=== PATIENT | female | born 1935 | race Hispanic/Latino ===

== ENCOUNTER 2017-08-04 15:37 | Emergency (ER) | payer MEDICARE, BC ==
[2017-08-04 15:47] VITALS: BMI 27.0
[2017-08-04 15:54] VITALS: TEMP 98
[2017-08-04] MEDS ORDERED: Morphine 5 MG/ML SYRINGE SC STA (16:03)
--- NOTE | 2017-08-04 16:07 | ED PDOC ---
Arrival/HPI - General Chief Complaint: Abnormal Skin Integrity Time Seen by Provider: 08/04/17 15:38 Historian: Patient, Family (Sister) - History of Present Illness Time/Duration: Other (Several days) Symptom Onset: Gradual Symptom Course: Worsening Severity Level: Severe Activities at Onset: Rest Associated Symptoms (Text): 08/04/17 16:05 Patient complains of a several day history of severe intolerable right breast and right back pain. She developed a rash. No dyspnea. No cough congestion or URI. No fever or chills. Lumbar epidural on July 25. Past Medical History - Infectious Disease Hx of Infectious Diseases: None - Reproductive Menopause: Yes - Cardiac Hx Cardiac Disorders: Yes Hx Hypertension: Yes - Pulmonary Hx Respiratory Disorders: No - Neurological Hx Neurological Disorder: No - HEENT Hx HEENT Disorder: No - Renal Hx Renal Disorder: No - Endocrine/Metabolic Hx Endocrine Disorders: No - Hematological/Oncological Hx Blood Disorders: Yes Hx Cancer: Yes (Colon Ca in 1978 tx Chemo) - Integumentary Hx Psoriasis: Yes (Back, especially lower back) - Musculoskeletal/Rheumatological Hx Falls: No - Gastrointestinal Hx Gastroesophageal Reflux: Yes - Genitourinary/Gynecological Hx Genitourinary Disorders: (Bilateral Breasts Biopsy) - Psychiatric Hx Psychophysiologic Disorder: No Hx Substance Use: No - Surgical History Hx Appendectomy: Yes Hx Hysterectomy: Yes - Anesthesia Hx Anesthesia Reactions: No Hx Malignant Hyperthermia: No - Suicidal Assessment Feels Threatened In Home Enviroment: No Family/Social History - Physician Review Nursing Documentation Reviewed: Yes Family/Social History: Unknown Family HX Smoking Status: Never Smoked Hx Alcohol Use: No Hx Substance Use: No Allergies/Home Meds Allergies/Adverse Reactions: Allergies alendronate sodium Allergy (Verified 08/04/17 15:47) PAIN clarithromycin Allergy (Verified 08/04/17 15:48) PAIN risedronate sodium [From Actonel] Allergy (Verified 08/04/17 15:48) PAIN Home Medications: Home Meds Medication Instructions Recorded Confirmed Amlodipine Besylate [Norvasc] 5 mg PO DAILY 07/29/13 08/04/17 Calcium/Vitamin D [Calcarb 600 1 tab PO TID 07/29/13 08/04/17 with Vitamin D 600 mg-400 Iu] Omeprazole [PrilOSEC] 40 mg PO DAILY 07/29/13 08/04/17 Review of Systems - Physician Review All systems were reviewed & negative as marked: Yes Physical Exam Vital Signs Temp Pulse Resp BP Pulse Ox 08/04/17 17:29 99 H 16 132/87 95 08/04/17 15:53 98 F 113 H 18 130/62 94 L Temperature: Afebrile Blood Pressure: Normal Pulse: Regular Respiratory Rate: Normal Appearance: Positive for: Well-Appearing, Non-Toxic, Uncomfortable Pain Distress: Severe Mental Status: Positive for: Alert and Oriented X 3 - Systems Exam Respiratory/Chest: Present: Clear to Auscultation, Good Air Exchange. No: Respiratory Distress, Accessory Muscle Use Cardiovascular: Present: Regular Rate and Rhythm, Normal S1, S2. No: Murmurs Upper Extremity: Present: Normal Inspection. No: Cyanosis, Edema Lower Extremity: Present: Normal Inspection. No: Edema Neurological: Present: GCS=15, CN II-XII Intact, Speech Normal, Motor Func Grossly Intact Skin: Present: Warm, Dry, Rashes (Erythematous right middle back and right breast rash, no vesicles yet), Normal Color Medical Decision Making ED Course and Treatment: 08/04/17 16:55 Symptoms have mildly improved. - Medication Orders Current Medication Orders: Discontinued Medications Famciclovir (Famvir) 500 mg PO Q8 CHIN Last Admin: 08/04/17 17:16 Dose: 500 mg Morphine Sulfate (Morphine) 4 mg SC STAT STA Stop: 08/04/17 16:04 Last Admin: 08/04/17 16:42 Dose: 4 mg Subcutaneous Administrations Document 08/04/17 16:42 GA (Rec: 08/04/17 16:42 GA [id number]) Charges for Administration # of Subcutaneous Administrations 1 Ondansetron HCl (Zofran Tab) 4 mg PO STAT STA Stop: 08/04/17 16:04 Last Admin: 08/04/17 16:42 Dose: 4 mg Disposition/Present on Arrival - Present on Arrival Any Indicators Present on Arrival: No History of DVT/PE: No History of Uncontrolled Diabetes: No Urinary Catheter: No History of Decub. Ulcer: No History Surgical Site Infection Following: None - Disposition Have Diagnosis and Disposition been Completed?: Yes Diagnosis: Shingles Disposition: HOME/ ROUTINE Disposition Time: 16:56 Patient Plan: Discharge Condition: IMPROVED Discharge Instructions (ExitCare): Fly (ED) Additional Instructions: Follow-up with PMD. Follow up in ER as needed. Prescriptions: Famciclovir [Famvir] 500 mg PO Q8 #21 tab oxyCODONE/Acetaminophen [Percocet 5/325 mg Tab] 1 ea PO Q6 #15 tab Ondansetron [Zofran Odt] 4 mg SL Q6 #20 odt Referrals: Justo Montes MD [Primary Care Provider] - Follow up with primary Forms: [employer] ([place]ian)
[2017-08-04 17:31] VITALS: BP 132/87; PULSE 99; RESP 16; O2SAT 95
== END 2017-08-04 17:29 | disposition home or self-care (01) ==
LOC: ED 15:37
DX: B02.9 Zoster without complications (principal)
CPT/HCPCS: 96372; 99283; J2270